=== PATIENT | male | born 1995 ===

== ENCOUNTER 2018-08-18 08:57 | Emergency (ER) | payer OTHER ==
[2018-08-18 09:17] VITALS: O2SAT 98; BMI 21.2
--- NOTE | 2018-08-18 09:55 | ED PDOC ---
HPI: General Adult Time Seen by Provider: 08/18/18 09:33 Chief Complaint (Provider): Cough History Per: Patient History/Exam Limitations: no limitations Onset/Duration Of Symptoms: Days (8 months) Additional Complaint(s): Pt. with chest pain on deep breath for 7-8 months. For 3 days has cough, nasal congestion, runny nose. Body aches. No abd pain, nausea, vomit, diarrhea. No weakness. No headache, dizziness. No dyspnea. Took 1 pill his girlfriend gave him yesterday. No drugs, etoh. No calf pain, long distance travel, hormone tx. Past Medical History Reviewed: Nursing Documentation, Vital Signs Vital Signs: Last Vital Signs Temp 98.5 F 08/18/18 09:16 Pulse 63 08/18/18 09:16 Resp 16 08/18/18 09:16 BP 121/70 08/18/18 09:16 Pulse Ox 98 08/18/18 09:16 - Medical History PMH: No Chronic Diseases - Surgical History Surgical History: No Surg Hx - Family History Family History: States: Unknown Family Hx - Living Arrangements Living Arrangements: With Family - Home Medications Home Medications: Ambulatory Orders Medication Instructions Recorded Ibuprofen [Motrin] 600 mg PO TID 7 Days tab 08/18/18 - Allergies Allergies/Adverse Reactions: Allergies Allergy/AdvReac Type Severity Reaction Status Date / Time No Known Allergies Allergy Verified 08/18/18 09:53 Review of Systems ROS Statement: Except As Marked, All Systems Reviewed And Found Negative ENT: Positive for: Nose Congestion Cardiovascular: Positive for: Chest Pain Respiratory: Positive for: Cough. Negative for: Shortness of Breath Musculoskeletal: Positive for: Other (body aches) Physical Exam - Reviewed Nursing Documentation Reviewed: Yes Vital Signs Reviewed: Yes - Physical Exam Appears: Positive for: Non-toxic, No Acute Distress Head Exam: Positive for: ATRAUMATIC, NORMAL INSPECTION, NORMOCEPHALIC Skin: Positive for: Normal Color, Warm, DRY Eye Exam: Positive for: EOMI, Normal appearance, PERRL ENT: Positive for: Nasal Congestion. Negative for: Pharyngeal Erythema Neck: Positive for: Normal, Painless ROM, Supple Cardiovascular/Chest: Positive for: Regular Rate, Rhythm, Chest Non Tender. Negative for: Edema Respiratory: Positive for: CNT, Normal Breath Sounds Gastrointestinal/Abdominal: Positive for: Normal Exam, Soft. Negative for: Tenderness Back: Positive for: Normal Inspection. Negative for: L CVA Tenderness, R CVA Tenderness Extremity: Positive for: Normal ROM. Negative for: Tenderness, Pedal Edema Neurologic/Psych: Positive for: Alert, Oriented - ECG ECG: Positive for: Interpreted By Me, Viewed By Me ECG Rhythm: Positive for: Normal QRS, Normal ST Segment, Sinus Rhythm O2 Sat by Pulse Oximetry: 98 Pulse Ox Interpretation: Normal - Radiology X-Ray: Interpreted by Me, Viewed By Me X-Ray Interpretation: No Acute Disease - Progress ED Course And Treament: 195: Stable. AAOx3. Pain free. Tolerated po. Fu with pcp. Disposition - Clinical Impression Clinical Impression: URI (upper respiratory infection), Chronic pain - Patient ED Disposition Is Patient to be Admitted: No Counseled Patient/Family Regarding: Studies Performed, Diagnosis, Need For Followup, Rx Given - Disposition Referrals: [facility] [Outside] - 08/21/18 Disposition: Routine/Home Disposition Time: 10:54 Condition: STABLE Additional Instructions: Return if not better in 3 days. Prescriptions: Ibuprofen [Motrin] 600 mg PO TID 7 Days tab Instructions: Chronic Pain (DC), Viral Upper Respiratory Infection, Adult (DC) Print Language: VENEZU[place]
--- NOTE | 2018-08-18 10:33 | RAD ---
Date of service: 08/18/2018 HISTORY: dyspnea COMPARISON: No prior. TECHNIQUE: Chest PA and lateral FINDINGS: LUNGS: No active pulmonary disease. PLEURA: No significant pleural effusion identified. No pneumothorax apparent. CARDIOVASCULAR: Normal. OSSEOUS STRUCTURES: No significant abnormalities. VISUALIZED UPPER ABDOMEN: Normal. OTHER FINDINGS: None. IMPRESSION: No active disease.
[2018-08-18 11:15] VITALS: BP 120/70; PULSE 78; RESP 19; TEMP 97
--- NOTE | 2018-08-18 22:32 | CARD ---
APPROVED REPORT Date of service: 08/18/2018 EKG Measurement Heart [id number] <Conclusion> Sinus bradycardia Otherwise normal ECG
== END 2018-08-18 11:14 | disposition home or self-care (01) ==
LOC: H.ER 08:57
DX: J06.9 Acute upper respiratory infection, unspecified (principal); G89.29 Other chronic pain